=== PATIENT | female | born 1960 | race Two or more races ===

== ENCOUNTER → 2025-07-09 | Outpatient (CLI) | payer MEDICAID, SELFPAY ==
--- NOTE | 2025-07-09 11:23 | XR_ITS ---
EXAMINATION: CT chest without intravenous contrast CT chest with intravenous contrast Date and time: July 09, 2025, 11:15 a.m. INDICATIONS: Chest pain coughing beginning 1 weeks ago, chest x-ray 06/09/2023 severe diffuse left lung pneumonia TECHNIQUE AND FINDINGS: Multiple 3.[address] chest images pre and post intravenous administration 60 cc [id number] 12 mm 10 mm right thyroid nodules No thoracic aortic aneurysmal dilatation Pulmonary artery segments are not enlarged No paratracheal or tracheobronchial or bronchopulmonary adenopathy Prominent vascular congestion including prominent central pulmonary arteries 20 mm pulmonary mass left upper lobe image 66 5 mm pulmonary nodule left upper lobe image 76 COPD with areas of airspace destruction Left lateral breast mass with spiculated margins, 22 mm 6 mm right lobe liver lesion image 166 Prominent osteopenia IMPRESSION: Right thyroid nodules, recommend dedicated thyroid sonography follow-up Prominent central pulmonary arteries, consider pulmonary artery hypertension COPD 20 mm pulmonary mass left upper lobe, 5 mm pulmonary nodule left upper lobe, differential would include lung carcinoma, pulmonary nodular metastatic disease, the larger mass in the left upper lobe is amenable to CT-guided percutaneous biopsy for diagnosis 22 mm lateral left breast lesion with spiculated margins highly suspicious for breast carcinoma, recommend diagnostic mammography, bilateral breast sonography follow-up
== END | disposition home or self-care (01) ==
PROVIDERS: PCP Physician Assistant; Referring Provider Physician Assistant; Visit Provider Physician Assistant
DX: E04.2 Nontoxic multinodular goiter (principal); R91.8 Other nonspecific abnormal finding of lung field
CPT/HCPCS: 71270; A4649; Q9967